=== PATIENT | male | born 1965 | race Caucasian/White ===

== ENCOUNTER 2018-03-30 09:23 | Outpatient (CLI) | payer OTHER | END 2018-03-30 09:27 | disposition home or self-care (01) | LOC: SONOGRAMA 09:23 | DX: E04.1 Nontoxic single thyroid nodule (principal) ==

== ENCOUNTER 2019-02-08 09:40 | Outpatient (CLI) | payer OTHER | END 2019-02-08 09:43 | disposition home or self-care (01) | LOC: SONOGRAMA 09:40 | DX: E04.2 Nontoxic multinodular goiter (principal) ==